=== PATIENT | male | born 2000 | race Caucasian/White ===

== ENCOUNTER 2020-10-23 03:52 | Emergency (ER) | payer OTHER, SELFPAY ==
[2020-10-23] VITALS (12 sets, daily range): BP systolic 107–168; BP diastolic 53–97; PULSE 81–112; RESP 14–21; TEMP 36.5–37.4; O2SAT 96–100; BMI 30.5; BMI 29.7
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
[2020-10-23 04:18] LABS: Basophils # 0.1 K/mm3 (0-0.2); Basophils % 0.6 % (0.1-2.0); Eosinophils # 0.1 K/mm3 (0.0-0.4); Eosinophils % 0.6 % (0.1-12.0); Hematocrit 47.6 % (42.0-52.0); Hemoglobin 16.7 g/dL (14.1-18.0); Lymphocytes % 19.1 % (10-50); Mean Corpuscular HGB Conc 35.1 g/dL (31.8-35.4); Mean Corpuscular Hemoglobin 30.8 pg (27.0-31.2); Mean Corpuscular Volume 87.7 fl (80-94); Mean Platelet Volume 8.9 fl (7.4-10.4); Monocytes # 0.7 K/mm3 (0.1-1.0); Monocytes % 4.7 % (1.7-9.3); Neutrophils # 11.6 K/mm3 (1.8-7.8); Neutrophils % 75.1 % (37.0-80.0); Platelet Count 209 K/mm3 (142-424); Red Blood Count 5.43 M/mm3 (4.60-6.20); Red Cell Distribution Width 13.1 % (11.5-17.5); White Blood Count 15.5 K/mm3 (4.8-10.8)
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
[2020-10-23 04:23] LABS: MANUAL DIFFERENTIAL MANUAL DIFFERENTIAL (MANUAL DIFF)
[2020-10-23 04:28] LABS: Alanine Aminotransferase 139 U/L (12-78); Albumin Level 5.2 g/dl (3.5-5.0); Albumin/Globulin Ratio 1.5 (1.1-1.8); Alkaline Phosphatase 76 U/L (38-126); Aspartate Amino Transferase 101 U/L (17-59); Blood Urea Nitrogen 7 mg/dl (9-20); Calcium 9.3 mg/dl (8.4-10.2); Carbon Dioxide 26 mmol/L (22.0-30.0); Chloride 103 mmol/L (98-107); Creatinine Clearance Estimated 167 mL/min (50-200); Estimated Glomerular Filt Rate 93 ml/min (>60); GFR (African American) 113 ML/MIN (>60); Globulin 3.4 g/dL (1.3-3.2); Glucose 102 mg/dl (74-100); Sodium 145 mmol/L (136-145); Total Protein,Serum 8.6 g/dl (6.3-8.2)
[2020-10-23 04:31] LABS: Lymphocytes % 7 % (10-50); Monocytes % 3 % (2-9); Neutrophils % 85 % (42-76); Platelet Estimate Normal; RBC Morphology Normal; Total Cells Counted 100
--- NOTE | 2020-10-23 04:35 | PC.NURSE ---
MD Vazquez stated it was ok to cancel type & screen.
--- NOTE | 2020-10-23 04:43 | PC.NURSE ---
Pt was able to give UA sample from sitting on the side of the bed, pt tolerated changing position well. Order placed for UA per MD Vazquez. Confirmed with MD that he did not want a UDS or ETOH order in aslo.
[2020-10-23 05:15] LABS: Microscopic, Urine URINE MICROSCOPIC (MICROSCOPIC)
[2020-10-23 05:17] LABS: Appearance,Urine CLEAR (Clear); Bilirubin,Urine Negative (Negative); Blood, Urine 3+ (Negative); Color,Urine YELLOW (Yellow); Glucose,Urine (UA) Negative (Negative); Ketones,Urine Negative (Negative); Leukocyte Esterase,Urine Negative (Negative); Nitrate,Urine Negative (Negative); Protein,Urine TRACE (Negative); Specific Gravity, Urine <= 1.005 (1.005-1.030); Urobilinogen,Urine 0.2 EU/dl (0.2)
[2020-10-23 05:19] LABS: Amorphous Sediment,Urine Trace /lpf
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
== END 2020-10-23 10:40 | disposition home or self-care (01) ==
PROVIDERS: Emergency Provider Emergency Medicine
DX: S91.112A Laceration without foreign body of left great toe without damage to nail, initial encounter (principal); S50.12XA Contusion of left forearm, initial encounter; S80.02XA Contusion of left knee, initial encounter; R04.0 Epistaxis; V47.1XXA Car passenger injured in collision with fixed or stationary object in nontraffic accident, initial encounter; Y92.488 Other paved roadways as the place of occurrence of the external cause
CPT/HCPCS: 12001; 70450; 70486; 71045; 71275; 72125; 72128; 72131; 72170; 73552; 73560; 73590; 73630; 74177; 80053; 81001; 85007; 85025; 96372; 99291; Q9958; Q9967